=== PATIENT | female | born 1985 ===

== ENCOUNTER 2017-06-29 05:30 | Day surgery (SDC) | payer OTHER | END 2017-06-29 13:52 | disposition home or self-care (01) | LOC: CIR.AMB 05:30 | DX: C54.1 Malignant neoplasm of endometrium (principal); N85.01 Benign endometrial hyperplasia ==

== ENCOUNTER 2017-07-17 08:00 | Inpatient (IN) | payer OTHER ==
[~2017-07-17] VITALS: Ht 170.2 cm; Wt 172.4 kg
== END 2017-07-30 09:57 | DRG 741 ==
LOC: OB/GYN 07-27 05:35 → O/R 07-27 05:35 → SURH 07-27 08:00 → OB/GYN 07-27 08:00 → SURH 10-24 08:00
PROVIDERS: Obstetrics & Gynecology
PROC: 0UT70ZZ Resection of Bilateral Fallopian Tubes, Open Approach (ICD-10-PCS; 2017-07-27)
PROC: 0UT90ZZ Resection of Uterus, Open Approach (ICD-10-PCS; principal; 2017-07-27 08:45)
DX: C54.1 Malignant neoplasm of endometrium (principal); N85.01 Benign endometrial hyperplasia; N72 Inflammatory disease of cervix uteri; E66.09 Other obesity due to excess calories